=== PATIENT | female | born 1975 | race Asian ===

== ENCOUNTER → 2016-05-26 | Outpatient (CLI) | payer OTHER ==
[~2016-05-26] MED LIST: FRRS300 PO; PRENTAB26 PO
== END | disposition home or self-care (01) ==
LOC: C.PATHSPEC 11:24
PROVIDERS: ATTEND Obstetrics & Gynecology
DX: N84.2 Polyp of vagina (principal); L92.8 Other granulomatous disorders of the skin and subcutaneous tissue; N76.89 Other specified inflammation of vagina and vulva